=== PATIENT | female | born 1935 | race Caucasian/White ===

== ENCOUNTER 2020-07-31 10:28 | Outpatient (CLI) | payer MEDICARE, OTHER, SELFPAY ==
--- NOTE | 2020-07-31 | DI.CT_ITS ---
EXAM: CT THORAX ABD/PEL CTA CLINICAL HISTORY: PREOP,THORACOABDOMINAL AAA, I71.6. TECHNIQUE: Imaging Protocol: Axial CT angiography was performed with multi-slice acquisition and m ulti-planar and/or 3D reconstructions. CONTRAST MATERIAL: Intravenous: Omnipaque 350 Contrast volume:structured data in ml Oral: yes / no COMPARISON: No exams were available for comparison FINDINGS: The examination is limited due to patient motion artifact. CHEST: Tracheobronchial tree: Patent where visualized. Mediastinum and Katt: No dominant adenopathy or fluid collection. There is soft tissue in the left hi lar region, which may represent adenopathy. Pulmonary parenchyma: Centrilobular and paraseptal emphysematous changes are present. There is scarr ing in the right lung apex; no focal consolidating infiltrates are seen. Pleura: No effusion or pneumothorax. Heart: The heart is not dilated. Marked coronary artery calcification is present. Significant perica rdial effusion is present. Aorta: The ascending thoracic aorta measures 3.8 x 3.9 cm. There is atherosclerosis present. There is tortuosity of the descending thoracic aorta. The descending thoracic aorta measures up to 4.3 x 4 .4 cm. Bones: Degenerative changes. ABDOMEN AND PELVIS: Abdomen: Celiac axis/mesenteric arteries: No evidence of occlusion or significant stenosis. Renal Arteries: There is marked stenosis in the proximal left renal artery. No significant stenosis is seen in the right renal artery. 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 Aorta: There is atherosclerosis. There is an abdominal aortic aneurysm which begins just below the level of the renal arteries. There is a maximum AP diameter 5.4 cm and a transverse diameter 5.7 cm. The length of this portion of the aneurysm is approximately 9.4 cm. There is significant mural thr ombus present. There is then aneurysmal dilatation just proximal to the aortic bifurcation measuring 3.3 cm AP x 3.5 cm transverse. Mural thrombus is present. This may extend into the very proximal a spects of both common iliac arteries. Pelvis: Iliac Arteries: Please see above. Common Femoral Arteries: No evidence of occlusion or significant stenosis. ABDOMEN: Liver: Normal density. No measurable mass. Portal, Superior Mesenteric, and Splenic Veins: Unremarkable. Gallbladder and Biliary Tract: No radiodense calculus or dilation. Pancreas: Normal density, no abnormal calcifications or inflammatory process. Spleen: Normal. Adrenals: No masses seen. Kidneys: There is marked left renal atrophy. Right kidney is unremarkable. No radiodense stones or obstructive uropathy. No masses seen. Bowel: No obstruction or bowel wall thickening. Appendix is unremarkable. Diverticulosis of the sigmo id colon but no evidence of acute diverticulitis. Peritoneal Cavity: No ascites, collection or mesenteric inflammatory response. Lymph Nodes: Within normal limits. Bones: Degenerative changes. Soft Tissues: Unremarkable. PELVIS: Bladder: Symmetric distention, no gross wall thickening. Reproductive Organs: Unremarkable as visualized. Lymph Nodes: Within normal limits. Bones: Degenerative changes. IMPRESSION: 1. Multifocal abdominal aortic aneurysm. There is an infrarenal abdominal aortic aneurysm measuring 5.4 cm AP x 5.7 cm transverse x 9.4 cm in length. There is then aneurysmal dilatation of the aorta j ust proximal to the bifurcation measuring 3.3 x 3.5 cm. This portion appears to extend into the prox imal aspects of both common iliac arteries. 2. 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 3. Atherosclerosis. 4. Pulmonary emphysema. 5. 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 6. Colonic diverticulosis but no evidence of acute diverticulitis. RADIATION DOSE DELIVERED: 869.81mGy.cm Total DLP DATA REPOSITORY: All CT scans at this facility are submitted to the National Radiology Data Registry (NRDR) Dose Index Registry (DIR) with the [employer] ([employer]). RADIATION OPTIMIZATION: All CT scans at this facility use at least one of these dose optimization te chniques: automated exposure control; mA and/or kV adjustment per patient size (includes targeted exa ms where dose is matched to clinical indication); or iterative reconstruction.
== END 2020-07-31 10:48 ==
PROVIDERS: PCP Internal Medicine; Visit Provider Surgery
DX: I71.6 Thoracoabdominal aortic aneurysm, without rupture (principal); I70.1 Atherosclerosis of renal artery; K57.30 Diverticulosis of large intestine without perforation or abscess without bleeding; J43.9 Emphysema, unspecified
CPT/HCPCS: 71275; 74177